=== PATIENT | female | born 1945 | race Caucasian/White ===

== ENCOUNTER 2016-05-14 07:42 | Day surgery (SDC) | payer MEDICARE ==
[~2016-05-14 07:42] MED LIST: ACETAMINOPHEN 1000MG/100 ML PREMIX IV ONE; FAMOTIDINE 20MG TABLET PO ONE; MECLIZINE 25 MG TABLET PO ONE; METOCLOPRAMIDE 10 MG TABLET PO ONE
[2016-05-14 07:53] LABS: BASO % 2.3 % (0-6); EOS % 3.8 % (0-6); GRAN % 44.7 % (47-80); HEMATOCRIT 45.2 % (35.0-47.0); HEMOGLOBIN 14.5 gm/dl (11.6-16.0); LYMPH % 37.5 % (16-45); MEAN CELL VOLUME 93.2 fl (81-97); MEAN CORPUSCULAR HEMOGLOBIN 29.9 pg (27-33); MEAN CORPUSCULAR HGB CONC 32.1 g/dl (32-36); MEAN PLATELET VOLUME 9.3 fl (7.4-10.4); MONO % 11.7 % (0-9); PLATELET COUNT 310 K/uL (130-400); RED BLOOD COUNT 4.85 M/uL (3.80-5.40); RED CELL DISTRIBUTION WIDTH 14.2 % (11.5-14.5); WHITE BLOOD COUNT W/O DIFF 6.4 K/uL (4.2-12.2)
[2016-05-14 08:05] LABS: ANION GAP 15.5 (7-16); BLOOD UREA NITROGEN 14 mg/dL (7-17); CARBON DIOXIDE 26.5 mmol/L (22-30); CREATININE 0.8 mg/dL (0.52-1.04); EST GLOMERULAR FILTRATION RATE > 60 ml/min; GLUCOSE,RANDOM 81 mg/dL (70-110)
[2016-05-14] MEDS ORDERED: BUPIVACAINE 0.25% W/EPI MPF 30ML VIAL IVP ONE (14:08)
[2016-05-14] MEDS ORDERED: HYDROCODONE/APAP 5/325MG TABLET PO ONE (14:08)
--- NOTE | 2016-05-14 14:10 | Operative Note ---
DATE OF PROCEDURE: . SURGEON: Kb Charles D.O. REFERRING PHYSICIAN: Loren Ham M.D. PREOPERATIVE DIAGNOSIS: SYMPTOMATIC BILIARY DYSKINESIA. POSTOPERATIVE DIAGNOSIS: SYMPTOMATIC BILIARY DYSKINESIA. PROCEDURE: Laparoscopic cholecystectomy. INDICATIONS: The patient is a 70-year-old female who presented to the clinic with right subcostal pain. She had extreme fatty food intolerance. Ultrasound did not reveal any cholelithiasis or cholecystitis. Follow-up HIDA scan showed an impaired ejection fraction with extreme pain with Kinevac injection. We did discuss cholecystectomy versus medical management. She desired surgical intervention. Her risks include, but are not limited to, bleeding, infection, ductal injury, possible conversion to open, and postoperative bile leak. The patient has had multiple laparotomies in the past as well as a hernia repair and a ruptured appendix. All of this seemed below the navel, and therefore I felt we could stay out of all of the adhesions above. Therefore, consent was signed and questions were answered. DESCRIPTION OF PROCEDURE: She was taken to the operating room and was placed in the supine position. General anesthesia was administered per the Department of Anesthesia. The patient's abdomen was prepped and draped in the usual fashion. Adequate time out was performed. Her identity was confirmed. At this time the infraumbilical region was anesthetized with a total of 4.0 mL of 0.25% Sensorcaine with epinephrine. A 2.0-cm infraumbilical incision was made. This was carried down to the anterior rectus fascia. This was incised. Hermilo clamps were placed, and the fascial edges were brought up into the wound. Stay sutures of 0 Vicryl were placed. The posterior rectus sheath was identified and incised. The peritoneal cavity was entered bluntly. A 0-degree, 10-mm lens was inserted. The patient had a clean midline. However , there were some fairly significant right subcostal adhesions noted. The patient had fairly significant cysts throughout both lobes of the liver which did extend into the tissue planes overlying the gallbladder. She had cysts throughout her mesentery and omentum as well. At this time an additional 5.0-mm right subcostal port was placed. Through the epigastric port adhesiolysis was done to clear out the spot for our additional right subcostal port. The gallbladder was retracted in a cephalad and lateral direction opening up the angle of Calot. The hepatocystic triangle was thoroughly dissected out. This did contain cystic lesions as well. The cystic duct and cystic artery were doubly clipped and cut in the standard fashion. The gallbladder was then taken off of the liver bed with the Roberth Harmonic. This was placed in an Endo Catch bag and brought out infraumbilically. The right upper quadrant was then rechecked and was found to be hemostatic. No bleeding, no bile leak, and no bowel injury were noted. There were fairly extensive adhesions as noted before with cysts throughout. Our visualization was excellent, and no bowel injury was noted. The patient was leveled out and pneumoperitoneum was released. All ports were removed. The fascia was closed with 0 Vicryl in [id number] fashion. The skin and all four ports were closed with 4-0 Vicryl. She was taken to Recovery in satisfactory condition. Final pathology is pending. Kb Charles D.O. Date Time cc: Loren Ham M.D. JOB NUMBER: [id number] MTDD
[2016-05-14] MEDS ORDERED: KETOROLAC 30 MG/ML VIAL IVP ONE (15:27)
[2016-05-14] MEDS ORDERED: DEXAMETHASONE 4 MG/ML 1ML VIAL IVP ONE (15:27)
[2016-05-14] MEDS ORDERED: LIDOCAINE 2% MDV (20MG/ML) 20ML VIAL IV ONE (15:27)
[2016-05-14] MEDS ORDERED: DESFLURANE 240 ML BTL INH ONE (15:27)
[2016-05-14] MEDS ORDERED: SUCCINYLCHOLINE 20 MG/ML 10ML IVP ONE (15:27)
[2016-05-14] MEDS ORDERED: GLYCOPYRROLATE 0.2 MG/ML ML IV ONE (15:27)
[2016-05-14] MEDS ORDERED: FENTANYL PF 100MCG/2ML VIAL IV ONE (15:27)
[2016-05-14] MEDS ORDERED: ROCURONIUM BROMIDE 50MG/5ML VIAL IV ONE (15:27)
[2016-05-14] MEDS ORDERED: NEOSTIGMINE 1 MG/1 ML,10ML VIAL IV ONE (15:27)
[2016-05-14] MEDS ORDERED: PROPOFOL 10 MG/ML VIAL IV ONE (15:27)
[2016-05-14] MEDS ORDERED: ONDANSETRON HCL IV 4 MG/2 ML VIAL IVP ONE (15:27)
[2016-05-14] MEDS ORDERED: MIDAZOLAM HCL 2MG/2ML VIAL IV ONE (15:27)
== END 2016-05-14 11:45 | disposition home or self-care (01) ==
LOC: SUR 07:42
PROVIDERS: ATTEND Surgery
DX: K82.8 Other specified diseases of gallbladder (principal); E78.00 Pure hypercholesterolemia, unspecified
CPT/HCPCS: 85025; 80048; 47562; 00790; J1885; J2405; J3010; J0330; J2710

== ENCOUNTER 2016-06-13 14:21 | Emergency (ER) | payer MEDICARE ==
[2016-06-13] MEDS ORDERED: AL HYDROX/MAG HYDROX 30ML UD PO ONE (16:47)
--- NOTE | 2016-06-13 16:53 | Emergency Department Record ---
History of Present Illness - General Chief complaint: ENT Stated complaint: PILL STUCK IN THROAT Time Seen by Provider: 06/13/16 16:43 Mode of Arrival: Ambulatory - History of Present Illness Initial comments: swollowed a chewable pill whole and it got stuck and she was drinking warm water but she didn't think it went through and she now feels it went through and she is able to drink water very well. Onset/Timin -: Hour(s) Location: Tooth # Consistency: Constant Improves with: None Worsens with: None - Related Data Home Medications Medication Instructions Recorded Confirmed Last Taken Fluoxetine HCl [Prozac] 10 mg PO DAILY 06/13/16 06/13/16 Unknown Fluticasone Propionate [Flonase] 1 spray IH DAILY 06/13/16 06/13/16 Unknown Pantoprazole Sodium [Protonix] 20 mg PO DAILY 06/13/16 06/13/16 Unknown Allergies Allergy/AdvReac Type Severity Reaction Status Date / Time No Known Drug Allergies Allergy Unknown Unverified 08/24/13 10:00 [NO KNOWN DRUG ALLERGIES] Travel Screening - Travel/Exposure Within Last 30 Days Have you traveled within the last 30 days?: No Review of Systems Reviewed: No additional complaints except as noted below Constitutional: Reports: As per HPI. Denies: Chills, Fever, Malaise, Night sweats, Weakness, Weight change Eyes: Reports: As per HPI. Denies: Eye discharge, Eye pain, Photophobia, Vision change ENT: Reports: As per HPI. Denies: Congestion, Dental pain, Ear pain, Epistaxis , Hearing loss, Throat pain Respiratory: Reports: As per HPI. Denies: Cough, Dyspnea, Hemoptysis, Stridor, Wheezes Cardiovascular: Reports: As per HPI. Denies: Arrhythmia, Chest pain, Dyspnea on exertion, Edema, Murmurs, Orthopnea, Palpitations, Paroxysmal nocturnal dyspnea, Rheumatic Fever, Syncope Endocrine: Reports: As per HPI. Denies: Fatigue, Heat or cold intolerance, Polydipsia, Polyuria Gastrointestinal: Reports: As per HPI. Denies: Abdominal pain, Constipation, Diarrhea, Hematemesis, Hematochezia, Melena, Nausea, Vomiting Genitourinary: Reports: As per HPI. Denies: Abnormal menses, Discharge, Dyspareunia, Dysuria, Frequency, Hematuria, Incontinence, Retention, Urgency Musculoskeletal: Reports: As per HPI. Denies: Arthralgia, Back pain, Gout, Joint swelling, Myalgia, Neck pain Skin: Reports: As per HPI. Denies: Bruising, Change in color, Change in hair/ nails, Lesions, Pruritus, Rash Neurological: Reports: As per HPI. Denies: Abnormal gait, Confusion, Headache, Numbness, Paresthesias, Seizure, Tingling, Tremors, Vertigo, Weakness Psychiatric: Reports: As per HPI. Denies: Anxiety, Auditory hallucinations, Depression, Homicidal thoughts, Suicidal thoughts, Visual hallucinations Hematological/Lymphatic: Reports: As per HPI. Denies: Anemia, Blood Clots, Easy bleeding, Easy bruising, Swollen glands Past Medical History - SOCIAL HISTORY Smoking Status: Never smoker Alcohol Use: None Drug Use: None - RESPIRATORY Hx Respiratory Disorders: Yes Hx Asthma: Yes (r/t allergies) Hx COPD: Yes (in past-better since "flushing of lungs"- Dr Fletcher) Hx Pneumonia: Yes (aspiration 2000) Hx Sleep Apnea: Yes (2007) Hx of CPAP: Yes - CARDIOVASCULAR Hx Cardio Disorders: Yes Hx Hypotension: Yes (runs alittle low) Comment:: high cholesterol - NEURO Hx Neuro Disorders: No - GI Hx GI Disorders: Yes Hx Abdominal Pain: Yes Hx Reflux: Yes Hx Hiatal Hernia: No Hx Irritable Bowel: Yes Hx Nausea/Vomiting: Yes (nausea occasionally in am-better now) Hx of Polyps: Yes - Hx Genitourinary Disorders: Yes Hx Bladder Problem: Yes (urinary frequency) - ENDOCRINE Hx Endocrine Disorders: No Hx Thyroid Disease: No (cysts/nodules) Comment:: cysts-checked out fine - MUSCULOSKELETAL Hx Musculoskeletal Disorders: Yes Hx Arthritis: Yes (hands,knees & elbows) - PSYCH Hx Psych Problems: Yes Hx Depression: Yes (prozac-better since menopause) - HEMATOLOGY/ONCOLOGY Hx Hematology/Oncology Disorders: No Family Medical History Any Significant Family History?: Yes Hx Heart Disease: Father, Mother, Brother/Sister Physical Exam - General General Appearance: Alert, Oriented x3, Cooperative, No acute distress - Head Head exam: Normal inspection - Eye Eye exam: Normal appearance, PERRL Pupils: Normal accommodation - ENT ENT exam: Normal exam, Mucous membranes moist, Normal external ear exam, Normal orophraynx, TM's normal bilaterally Ear exam: Normal external inspection. negative: External canal tenderness Nasal Exam: Normal inspection. negative: Discharge, Sinus tenderness Mouth exam: Normal external inspection, Tongue normal Teeth exam: Normal inspection. negative: Dental caries Throat exam: Normal inspection. negative: Tonsillar erythema, Tonsillar exudate - Neck Neck exam: Normal inspection, Full ROM. negative: Tenderness - Respiratory Respiratory exam: Normal lung sounds bilaterally. negative: Respiratory distress - Cardiovascular Cardiovascular Exam: Regular rate, Normal rhythm, Normal heart sounds - GI/Abdominal GI/Abdominal exam: Soft, Normal bowel sounds. negative: Tenderness - Rectal Rectal exam: Deferred - exam: Deferred - Extremities Extremities exam: Normal inspection, Full ROM, Normal capillary refill. negative: Tenderness - Back Back exam: Reports: Normal inspection, Full ROM. Denies: Muscle spasm, Rash noted, Tenderness - Neurological Neurological exam: Alert, Normal gait, Oriented X3, Reflexes normal - Psychiatric Psychiatric exam: Normal affect, Normal mood - Skin Skin exam: Dry, Intact, Normal color, Warm Course Vital Signs 06/13/16 15:42 Temperature 97.7 F Pulse Rate [ 70 Pulse Ox Probe] Respiratory 18 Rate Blood Pressure 123/75 [Left Arm] Pulse Ox 99 Disposition Clinical Impression: Esophageal abrasion Qualifiers: Encounter type: initial encounter Qualified Code(s): S27.818A - Other injury of esophagus (thoracic part), initial encounter Disposition: Home, Self-Care Condition: (1) Good Instructions: Abrasion (ED) Additional Instructions: drink liquids and follow up with Dr. Ham tomorrow and if swallowing not better may need EGD. maalox 15 ml four times a day Forms: Patient Portal Access Time of Disposition: 16:53
== END 2016-06-13 17:30 | disposition home or self-care (01) ==
LOC: ER 14:21
DX: S27.818A Other injury of esophagus (thoracic part), initial encounter (principal); W22.8XXA Striking against or struck by other objects, initial encounter
CPT/HCPCS: 99282

== ENCOUNTER 2018-02-21 09:55 | Day surgery (SDC) | payer MEDICARE ==
[2018-02-21] MEDS ORDERED: LIDOCAINE 2% MDV (20MG/ML) 20ML VIAL IV ONE (09:56)
[2018-02-21] MEDS ORDERED: PROPOFOL 10 MG/ML VIAL IV ONE (09:56)
--- NOTE | 2018-02-24 09:40 | Operative Note ---
DATE OF SURGERY: 02/21/2018 SURGEON: Girish Peterson MD OPERATION: COLONOSCOPY. INDICATIONS: This is a 72-year-old female with history of colon polyps who presented for surveillance colonoscopy. POSTOPERATIVE DIAGNOSIS: Normal colon. ANESTHESIA: Sedation is per Anesthesia. Pulse oximetry was monitored throughout the procedure to maintain O2 saturation of 90% or greater. Supplemental oxygen was administered via nasal cannula. Cardiac and vital signs were monitored throughout the duration of the procedure, and they were stable. The procedure of colonoscopy and risks and alternatives of the procedure, including the risk of bleeding and perforation, among others, were explained to the patient who voiced understanding and agreed to have the procedure done. Physical examination was performed, and the patient was found stable for sedation. PROCEDURE: The patient was placed in the left lateral position. Sedation was initiated. A digital rectal exam was performed and showed some mild external hemorrhoids with no palpable rectal masses. An Olympus PCF-180AL colonoscope was then inserted into the rectum under direct visualization. It was advanced to the cecum without difficulty. The ileocecal valve and appendiceal orifice were identified and photographed. The colonic mucosa was carefully examined upon introduction of the colonoscope. There were no lesions noted. The colonoscope was then withdrawn while carefully examining the colonic mucosal surfaces. No lesions were noted. In the rectum, retroflexion was performed and grade 1 internal hemorrhoids were noted. The colonoscope was then withdrawn and the procedure was terminated. The patient tolerated the procedure well without any immediate complications. The patient remained with stable vital signs and was transferred to the recovery room. RECOMMENDATIONS: 1. The patient should be on a high-fiber diet. 2. The patient is to have a repeat colonoscopy for surveillance in about 5 years. Thank you for allowing me to participate in the care of your patient. CC: COLTEN MARIE MD, FACP [facility]
== END 2018-02-21 16:59 | disposition home or self-care (01) ==
LOC: HOP 09:55
PROVIDERS: ATTEND Internal Medicine Gastroenterology
DX: Z12.11 Encounter for screening for malignant neoplasm of colon (principal); Z86.010 Personal history of colon polyps; E78.00 Pure hypercholesterolemia, unspecified; J44.9 Chronic obstructive pulmonary disease, unspecified; J45.909 Unspecified asthma, uncomplicated
CPT/HCPCS: 00812; G0105